=== PATIENT | male | born 1945 | race Caucasian/White ===

== ENCOUNTER 2018-02-18 10:44 | Outpatient (CLI) | payer MEDICARE, BC ==
[2018-02-18 12:29] LABS: #Eosinphils 0.1 thou/uL (0.0-0.7); #Lymphocytes 1.7 thou/uL (1.20-3.40); #Monocytes 0.7 thou/uL (0.11-0.59); #Neutrophils 5.2 thou/uL (1.40-6.50); %Basophils 0.4 % (0.0-1.0); %Eosinophils 1.8 % (0.0-10.0); %Lymphocytes 21.8 % (21.0-51.0); %Monocytes 8.4 % (0.0-10.0); %Neutrophils 67.7 % (42.0-75.0); Hemoglobin 15.5 g/dL (14.0-18.0); Mean Corpuscular HGB CONC 34.2 g/dL (32.0-36.0); Mean Corpuscular Volume 96.4 fL (78.0-98.0); Mean Platelet Volume 7.8 fL (7.4-10.4); Platelet Count 272 thou/uL (130-400); RBC Distribution Width 11.8 % (11.5-14.5); Red Blood Cell (RBC) Count 4.72 mill/uL (4.70-6.10); White Blood Cell (WBC) Count 7.7 thou/uL (4.8-10.8)
[2018-02-18 13:05] LABS: Anion Gap 14 mmol/L (10-20); BUN (Urea Nitrogen) 19 mg/dL (8.4-25.7); Calc. Creatinine Clearance 0 mL/min (70-130); Calcium 9.8 mg/dL (7.8-10.44); Carbon Dioxide 28 mmol/L (23-31); Chloride 100 mmol/L (98-107); Estimated GFR-MDRD Greater than 90; Glucose 119 mg/dL (83-110); Potassium 4.1 mmol/L (3.5-5.1); Sodium 138 mmol/L (136-145)
--- NOTE | 2018-02-19 22:02 | EKG ---
Test Reason : Blood Pressure : / mmHG Vent. 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
== END 2018-02-18 10:45 | disposition home or self-care (01) ==
LOC: LABBT 10:44
PROVIDERS: ATTEND Orthopaedic Surgery
DX: Z01.818 Encounter for other preprocedural examination (principal); G56.03 Carpal tunnel syndrome, bilateral upper limbs; G56.23 Lesion of ulnar nerve, bilateral upper limbs
CPT/HCPCS: 80048; 85025; 93005; 93010

== ENCOUNTER 2018-02-19 06:48 | Day surgery (SDC) | payer MEDICARE, BC ==
--- NOTE | 2018-02-18 10:25 | HP ---
ANTICIPATED DATE OF ADMISSION/SURGERY: 02/19/2018. HISTORY OF PRESENT ILLNESS: The patient is a 72-year-old male with a 6-month history of numbness and tingling in both hands, right greater than left. There has been no injury. He has occasional pain, and his primary complaint is numbness. He has had persistent symptoms despite restriction of activities. PAST MEDICAL HISTORY: The patient has history of previous AR and CABG and diabetes. 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 He does take aspirin and Xarelto, but has stopped Xarelto 3 days prior to anticipated surgery, but has continued aspirin. MEDICATIONS: His other medications include; 1. Metformin. 2. Vytorin. 3. Multivitamins. 4. Carvedilol. 5. Tradjenta. 6. Chlorthalidone. 7. Alendronate. 8. Iron. ALLERGIES: HE IS ALLERGIC TO LEVAQUIN. FAMILY HISTORY: Otherwise unremarkable. SOCIAL HISTORY: Otherwise unremarkable. REVIEW OF SYSTEMS: Otherwise unremarkable. PHYSICAL EXAMINATION: GENERAL: Reveals a healthy male. HEENT: Unremarkable. NECK: Supple. CHEST: Clear. HEART: Regular rate and rhythm. ABDOMEN: Soft, nontender. RECTAL: Deferred. GENITAL: Deferred. EXTREMITIES: Pertinent findings, which were his upper extremities, there is no obvious swelling of his elbows or wrists. Examination of his right wrist reveals full range of motion. There is a negative Tinel sign at the carpal tunnel and positive Phalen test. There is subjective numbness at all fingers. Motor exam appears to be intact with palpable distal pulses. There is a negative Tinel sign at the cubital tunnel of the right elbow. Examination of the left wrist reveals similar findings. Examination of the left elbow reveals full range of motion and negative Tinel sign at the cubital tunnel. DIAGNOSTIC STUDIES: The diagnostic studies performed by Dr. Crews reveal moderately severe carpal tunnel and cubital tunnel bilaterally. 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 PLAN: Endoscopic, possible open right carpal tunnel release and open cubital tunnel release with medial epicondylectomy. He will require similar procedure on the left side once he is recovered from the right. The nature of the surgery, length of recovery, and potential complications such as infection, loss of motion, incomplete relief, nerve injury, recurrence, and need for additional treatment and repeat surgery have been discussed in detail. Job ID: [id number]
[2018-02-18 11:20] VITALS: BMI 27.1
[2018-02-19] MEDS ORDERED: Bupivacaine HCl 0.5%/Epinephrine 1:200,000/PF 30 ml Vial ONE (08:46)
[2018-02-19] MEDS ORDERED: Lidocaine 1% PF 5 ML VIAL ONE ×2 (08:46→16:25)
[2018-02-19] MEDS ORDERED: Fentanyl 100 MCG/2 ML VIAL ONE (08:48)
[2018-02-19] MEDS ORDERED: CEFAZOLIN 2 GM/50 ML BAG ONE (08:54)
[2018-02-19] MEDS ORDERED: Bacitracin Zinc Ointment 30 gm TUBE ONE (09:56)
[2018-02-19] MEDS ORDERED: ePHEDrine/0.9% NaCl/PF SYRINGE 50 mg/10 ml ONE (16:25)
[2018-02-19] MEDS ORDERED: Ondansetron PF 4 MG/2 ML Vial ONE (16:25)
[2018-02-19] MEDS ORDERED: PROPOFOL 200 MG/20 ML VIAL ONE (16:25)
[2018-02-19] MEDS ORDERED: PHENYLEPHRINE-NS 100 MCG/ML 10 ML SYRINGE ONE (16:25)
[2018-02-19] MEDS ORDERED: Dexamethasone 20 MG/5 ML VIAL ONE (16:25)
--- NOTE | 2018-02-21 07:29 | OP ---
DATE OF PROCEDURE: 02/19/2018 ANESTHESIA: General. PREOPERATIVE DIAGNOSES: 1. Right carpal tunnel syndrome. 2. Right cubital tunnel syndrome. POSTOPERATIVE DIAGNOSES: 1. Right carpal tunnel syndrome. 2. Right cubital tunnel syndrome. PROCEDURE PERFORMED: 1. Right endoscopic carpal tunnel release. 2. Right cubital tunnel release with medial epicondylectomy. DESCRIPTION OF PROCEDURE: After satisfactory anesthesia was induced in supine position, the patient was prepped and draped in routine sterile fashion. The right arm was elevated and exsanguinated with an Esmarch bandage and the tourniquet was inflated to 250 mmHg. A 2-cm transverse incision was made in the proximal wrist flexor crease, carried down through subcutaneous tissues. Bleeding points were controlled with Bovie cautery. Using sharp and blunt dissection, a distally based flap at the forearm fascia was developed, retracted distally, and the palmaris longus tendon retracted radially. The proximal edge of the deep forearm fascia was split under direct visualization with small scissors and made sure there was no proximal impingement in the median nerve. Synovial elevator was introduced beneath the transverse carpal ligament and the synovium seen from the under surface. Carpal tunnel dilators were inserted. The 3M Sarita Carpal Tunnel Release System was then introduced beneath the transverse carpal ligament In line with the ring finger. The distal edge of the ligament was easily identified and then divided in a distal to proximal direction by pulling the trigger of the assembly with engaging the knife withdrawing the scope proximally. These were done at several stages to make sure there is complete division of the transverse carpal ligament, which was documented with the video printer. Withdrawing the scope, carpal tunnel dilator was inserted into the carpal tunnel and there was markedly improved passage and subcutaneous position of the instrument. The wound was thoroughly irrigated and the skin closed with a running subcuticular 3-0 nylon. Attention was then directed to the elbow. Longitudinal incision centered over the medial epicondyle was developed, carried down through the subcutaneous tissues, bleeding points were controlled with Bovie cautery and also with Bipolar cautery. Using a sharp blunt dissection, the medial epicondyle was exposed and sub- periosteum exposed. The ulnar nerve was then freed up from the cubital tunnel. There was moderate scarring around the nerve. It was gently freed up and no attempts were made to skeletonize the nerve. While protecting the nerve, the medial epicondyle was excised with an osteotome flush with the shaft of the humerus with a smooth rasp. It was irrigated and the deep fascia closed over the defect of the medial epicondyle. This then allowed the ulnar nerve to fall anteriorly and it appeared to be free and mobile without impingement. The skin of both incisions was then Injected with 0.5% Marcaine. The subcutaneous tissues of the elbow were closed with interrupted 2-0 Vicryl and the skin closed with running subcuticular 3-0 V-Loc and SurgiSeal skin adhesive. Sterile dressings were applied to both incisions and the patient was immobilized in a long arm plaster splint sling. The tourniquet was deflated after 53 minutes. The hand promptly pinked up and the patient was awakened and taken to the recovery room in stable condition. There were no apparent intraoperative complications. The estimated blood loss was negligible. The patient will be discharged home in satisfactory condition with some ice and elevation. Given written wound care instructions. He was given a prescription for Roberts 7.5 for pain 48 tablets. He was also given a prescription for Xarelto 10 mg to take for the next 3 days starting tomorrow and then he will resume his normal 20 mg daily dose. He will be rechecked in my office in 10 to 14 days or sooner if there are any problems prior to that time. Job ID: [id number] MTDD
== END 2018-02-19 12:46 | disposition home or self-care (01) ==
LOC: SDC 06:48
PROVIDERS: ATTEND Orthopaedic Surgery
PROC: 01N50ZZ Release Median Nerve, Open Approach (ICD-10-PCS; principal; 2018-02-19)
PROC: 01N40ZZ Release Ulnar Nerve, Open Approach (ICD-10-PCS; 2018-02-19)
PROC: 0PBF0ZZ Excision of Right Humeral Shaft, Open Approach (ICD-10-PCS; 2018-02-19)
DX: G56.23 Lesion of ulnar nerve, bilateral upper limbs (principal); G56.03 Carpal tunnel syndrome, bilateral upper limbs; I25.2 Old myocardial infarction; E11.9 Type 2 diabetes mellitus without complications; Z86.718 Personal history of other venous thrombosis and embolism; Z79.01 Long term (current) use of anticoagulants; Z79.82 Long term (current) use of aspirin; Z79.83 Long term (current) use of bisphosphonates; Z79.84 Long term (current) use of oral hypoglycemic drugs; Z79.899 Other long term (current) drug therapy; Z88.1 Allergy status to other antibiotic agents
CPT/HCPCS: J0670; J1100; J2001; J2405; J2704; J3010

== ENCOUNTER 2019-03-05 07:32 | Outpatient (CLI) | payer MEDICARE, BC ==
--- NOTE | 2019-03-05 08:51 | MRI ---
EXAM: MRI of the left forefoot without IV contrast DATE: 03/05/2019 12:00 AM INDICATION: Osteomyelitis of the left foot COMPARISON: None. FINDING: Motion artifact limits image detail. There is a plantar base ulceration underlying the fift h digit metatarsal phalangeal head measuring 1.4 cm x 3.3 cm in its greatest mediolateral and AP dimensions respectively. No destructive cortical osteolysis or bone marrow signal abnormalities evide nt to suggest presence of underlying osteomyelitis. There is a bifid tibial great toe sesamoid with abnormal edematous type signal involving the distal pole on image 16 of series 3. There is a diffuse subcutaneous involving the foot, more prominent dorsally. There is diffuse intrinsic foot muscular atrophy. No acute fracture is demonstrated. IMPRESSION: 1. Large plantar base ulceration overlying the fifth digit metatarsal phalangeal head without evidenc e of osteomyelitis. 2. Mild sesamoiditis of the tibial great toe sesamoid. 3. Diffuse edema involving the left foot may reflect lymphedema or cellulitis. 4. Diffuse atrophy of the intrinsic foot musculature likely related to denervation.
== END 2019-03-05 07:33 | disposition home or self-care (01) ==
LOC: TBSIIMAG 07:32
PROVIDERS: ATTEND Podiatrist Foot & Ankle Surgery
DX: M86.9 Osteomyelitis, unspecified (principal); R60.0 Localized edema; M25.872 Other specified joint disorders, left ankle and foot; L97.529 Non-pressure chronic ulcer of other part of left foot with unspecified severity

== ENCOUNTER 2020-04-11 09:59 | Outpatient (CLI) | payer BC, MEDICARE ==
--- NOTE | 2020-04-11 10:34 | RAD ---
Exam:3 views left foot HISTORY: Pressure ulcer the bottom of the fifth metatarsal COMPARISON: None FINDINGS: Pressure ulcer with lucency involving the plantar soft tissues at the level of the metatars al head is noted. No radiopaque foreign body. There is associated soft tissue swelling. With regard to the osseous structures, no erosive or destructive changes. There is mild narrowing of the first me tatarsal phalangeal joint space with sclerosis. There is presumed chronic degenerative change of the first proximal interphalangeal joint space. Persistent flexion. Minimal atherosclerosis. IMPRESSION: 1. There is soft tissue ulceration with associated cellulitis. No radiographic evidence of osteomyeli tis. 2. Chronic changes involving the first digit metatarsophalangeal joint space and distal interphalange al joint space.
== END 2020-04-11 10:00 | disposition home or self-care (01) ==
LOC: BICRAD 09:59
PROVIDERS: ATTEND Podiatrist
DX: L89.90 Pressure ulcer of unspecified site, unspecified stage (principal); L03.90 Cellulitis, unspecified

== ENCOUNTER 2021-09-15 10:40 | Outpatient (CLI) | payer MEDICARE, BC | END 2021-09-15 10:41 | disposition home or self-care (01) | LOC: BICRAD 10:40 | PROVIDERS: ATTEND Nurse Practitioner Family | DX: S91.302A Unspecified open wound, left foot, initial encounter (principal); T79.7XXA Traumatic subcutaneous emphysema, initial encounter; E11.21 Type 2 diabetes mellitus with diabetic nephropathy; E11.621 Type 2 diabetes mellitus with foot ulcer; L97.425 Non-pressure chronic ulcer of left heel and midfoot with muscle involvement without evidence of necrosis; I25.84 Coronary atherosclerosis due to calcified coronary lesion; E11.51 Type 2 diabetes mellitus with diabetic peripheral angiopathy without gangrene; I70.203 Unspecified atherosclerosis of native arteries of extremities, bilateral legs; I82.409 Acute embolism and thrombosis of unspecified deep veins of unspecified lower extremity; M21.371 Foot drop, right foot ==

== ENCOUNTER 2022-04-25 14:46 | Outpatient (CLI) | payer MEDICARE, BC | END 2022-04-25 14:47 | disposition home or self-care (01) | LOC: BICRAD 14:46 | DX: C43.9 Malignant melanoma of skin, unspecified (principal) | CPT/HCPCS: 71046 ==

== ENCOUNTER 2022-09-03 07:20 | Outpatient (CLI) | payer MEDICARE, BC | END 2022-09-03 07:21 | disposition home or self-care (01) | LOC: BICMRI 07:20 | PROVIDERS: ATTEND Family Medicine | DX: M48.02 Spinal stenosis, cervical region (principal); M47.812 Spondylosis without myelopathy or radiculopathy, cervical region; Z98.1 Arthrodesis status | CPT/HCPCS: 72040; 72141 ==